=== PATIENT | female | born 1970 | race Caucasian/White ===

== ENCOUNTER 2016-11-05 17:30 | Emergency (ER) ==
[2016-11-05 17:35] VITALS: BP 155/94; TEMP 98.7; BMI 25.8
[2016-11-05] MEDS ORDERED: TETANUS DIPHTHERIA TOXOIDS IM ONE (17:41)
--- NOTE | 2016-11-05 17:45 | ED.PDOC ---
General ED Provider: Dr. KIANA THOMAS Chief Complaint: Foot Pain/Injury Stated Complaint: steppped on a nail Time Seen by Physician: 17:38 (see with entire staff) Mode of Arrival: Walk-In Information Source: Patient Exam Limitations: No limitations Nursing and Triage Documentation Reviewed and Agree: Yes Trauma/Injury Complaint Exam - Trauma Complaint/Exam Location of Pain or Injury: Reports: Other (puncture wound left foot ) Onset/Duration: 2 days Symptoms Are: Still present Initial Severity: Mild Current Severity: None Character: Reports: Aching Aggravating: Reports: None Alleviating: Reports: None Associated Signs and Symptoms: Denies: LOC, Confusion, Memory loss, Lethargy, Vomiting, Bleeding, Bruising, Swelling, Extremity disuse, Painful respiration, Hoarseness, Dysphagia, Hemoptysis, Significant blood loss Related History: Reports: Similar episode Review of Systems - Review Of Systems Constitutional: Reports: No symptoms Eyes: Reports: No symptoms Ears, Nose, Mouth, Throat: Reports: No symptoms Respiratory: Reports: No symptoms Cardiac: Reports: No symptoms GI: Reports: No symptoms : Reports: No symptoms Musculoskeletal: Reports: Other (puncture wound sole of left foot ) Skin: Reports: No symptoms Neurological: Reports: No symptoms Endocrine: Reports: No symptoms Hematologic/Lymphatic: Reports: No symptoms All Other Systems: Reviewed and Negative Past Medical History - Past Medical History Previously Healthy: Yes Endocrine: Reports: None Cardiovascular: Reports: None Respiratory: Reports: None Hematological: Reports: None Gastrointestinal: Reports: None Genitourinary: Reports: None Neuro/Psych: Reports: None Musculoskeletal: Reports: None Cancer: Reports: None Last Menstrual Period: NA - Surgical History General Surgical History: Reports: None - Family History Family History: Reports: None - Social History Smoking Status: Current every day smoker Hx Substance Use: No Alcohol Screening: None - Immunizations Tetanus Shot up to Date: No Physical Exam - Physical Exam Appearance: Well-appearing, No pain distress, Well-nourished Eyes: PHYLLIS, EOMI, Conjunctiva clear ENT: Ears normal, Nose normal, Oropharynx normal Respiratory: Airway patent, Breath sounds clear, Breath sounds equal, Respirations nonlabored Cardiovascular: RRR, Pulses normal, No rub, No murmur GI/: Soft, Nontender, No masses, Bowel sounds normal, No Organomegaly Musculoskeletal: Normal strength, ROM intact, No edema, No calf tenderness Skin: Warm, Dry, Normal color Neurological: Sensation intact, Motor intact, Reflexes intact, Cranial nerves intact, Alert, Oriented Psychiatric: Affect appropriate, Mood appropriate Critical Care Note - Critical Care Note Total Time (mins): 0 Course - Course Orders, Labs, Meds: Orders Category Date Time Status Tetanus, Diphtheria Tox,Adult [Tetanus Diphtheria MEDS 11/05/16 17:41 Discontinued Toxoids] 0.5 ml IM .ONCE ONE Medications Discontinued Medications Generic Name Dose Route Start Last Admin Trade Name Freq PRN Reason Stop Dose Admin Tetanus/Diphtheria Toxoids 0.5 ml 11/05/16 17:41 Tetanus Diphtheria Toxoids IM 11/05/16 17:42 .ONCE ONE Vital Signs: Temp Pulse Resp BP Pulse Ox 11/05/16 17:31 98.7 F 85 16 155/94 H 95 Departure - Departure Time of Disposition: 17:49 Disposition: HOME SELF-CARE Discharge Problem: Puncture wound of foot Qualifiers: Encounter type: initial encounter Laterality: left Qualifier Code: (S91.332A) Puncture wound without foreign body, left foot, initial encounter Instructions: Puncture Wound (ED) Condition: Good Pt referred to PMD for follow-up: Yes Prescriptions: Levofloxacin [Levaquin] 500 mg PO DAILY #7 tablet Allergies/Adverse Reactions: Allergies No Known Allergies Allergy (Unverified 11/05/16 17:39) Home Medications: Ambulatory Orders Levofloxacin [Levaquin] 500 mg PO DAILY #7 tablet 11/05/16
== END 2016-11-05 18:17 | disposition home or self-care (01) ==
LOC: ED 17:30
DX: S91.332A Puncture wound without foreign body, left foot, initial encounter (principal); W45.0XXA Nail entering through skin, initial encounter; F17.210 Nicotine dependence, cigarettes, uncomplicated
CPT/HCPCS: 90471; 99283